=== PATIENT | female | born 1985 | race Asian ===

== ENCOUNTER 2018-02-05 19:52 | Emergency (ER) | payer MEDICAID, OTHER ==
[~2018-02-05] VITALS: Ht 167.6 cm; Wt 91.6 kg
[2018-02-05 20:12] VITALS: BP 119/61
[2018-02-05] MEDS ORDERED: TRIAMCINOLONE 40MG/ML 1ML VIAL IM ONE (22:30)
[2018-02-05] MEDS ORDERED: TRIAMCINOLONE 40MG/ML 1ML VIAL ONE (22:39)
== END 2018-02-05 23:14 | disposition home or self-care (01) ==
LOC: ER 19:52
DX: M54.30 Sciatica, unspecified side (principal); F17.210 Nicotine dependence, cigarettes, uncomplicated
CPT/HCPCS: 72100; 81025; 96372; 99284; J3301

== ENCOUNTER 2020-06-18 10:43 | Emergency (ER) | payer OTHER ==
[~2020-06-18] VITALS: Ht 167.6 cm; Wt 89.8 kg
[2020-06-18 10:45] VITALS: BP 127/74
[2020-06-18] MEDS ORDERED: cefTRIAXone SOD 1,000 MG VL IM ONE (11:15)
[2020-06-18] MEDS ORDERED: KETOROLAC TROMETH 60MG/2ML VIAL IM ONE (11:15)
== END 2020-06-18 12:09 | disposition home or self-care (01) ==
LOC: ER 10:43
DX: K02.9 Dental caries, unspecified (principal); F17.210 Nicotine dependence, cigarettes, uncomplicated
CPT/HCPCS: 96372; 99284; J0696; J1885

== ENCOUNTER 2023-10-17 15:08 | Emergency (ER) | payer OTHER ==
[~2023-10-17] VITALS: Ht 167.6 cm; Wt 98.9 kg
[2023-10-17 19:31] VITALS: BP 117/71; PULSE 80; RESP 18; TEMP 98.7; O2SAT 100
[2023-10-17] MEDS ORDERED: TRIA0.1O TOP (20:27)
[2023-10-17] MEDS ORDERED: ZOFR4T PO (20:27)
[2023-10-17] MEDS ORDERED: DIPH25CA66 PO (20:27)
[2023-10-17] MEDS ORDERED: FLUT1SPR5 (20:27)
[2023-10-17] MEDS ORDERED: BUTA-280 OR (20:27)
[2023-10-17] MEDS ORDERED: AMOX500C2 PO (20:27)
[2023-10-17] MEDS ORDERED: GENT0.3S10 EACHEYE (20:32)
[2023-10-17] MEDS: PROCHLORPERAZINE MALEATE 10 MG TAB PO ONE (21:02)
[2023-10-17] MEDS: HYDROcodone-ACET 5/325MG TAB PO ONE (21:02)
[2023-10-17] MEDS: KETOROLAC TROMETH 60MG/2ML VIAL IM ONE (21:02)
== END 2023-10-17 21:59 | disposition home or self-care (01) ==
LOC: ER 15:08
DX: J01.10 Acute frontal sinusitis, unspecified (principal); L30.9 Dermatitis, unspecified; H10.9 Unspecified conjunctivitis; R51.9 Headache, unspecified; F17.210 Nicotine dependence, cigarettes, uncomplicated
CPT/HCPCS: 70450; 96372; 99285; J1885; Q0164